=== PATIENT | male | born 1945 | race Caucasian/White ===

== ENCOUNTER → 2020-01-13 11:48 | Outpatient (CLI) | payer OTHER, SELFPAY ==
[2020-01-14 22:57] LABS: COVID19 Sendout Not Detected (Not Detect)
== END ==
PROVIDERS: Visit Provider Physician Assistant
DX: Z01.812 Encounter for preprocedural laboratory examination (principal)
CPT/HCPCS: 87635

== ENCOUNTER 2020-01-16 06:41 | Day surgery (SDC) | payer OTHER, SELFPAY ==
[2020-01-16] MEDS: PROPARACAINE 0.5% OPHTH SOL 2 DROPS EYE-OP (07:48)
[2020-01-16] MEDS: CATARACT EYE COMPOUND (10 DROPS/SYRINGE) 3 DROPS EYE-OP (07:51)
[2020-01-16 08:03] VITALS: BP 154/92; PULSE 64; RESP 20; TEMP 35.8; O2SAT 96; BMI 30.8
--- NOTE | 2020-01-16 08:33 | PM.PREOP ---
Pre-operative Note Interval Note History & Physical reviewed/Exam performed by Physician: Yes Changes to H&P: No
--- NOTE | 2020-01-16 08:33 | PM.OP.1 ---
Operative Date/Time/Diagnoses Pre-op diagnosis: Nuclear cataract right eye Procedure & Clinicians Procedure: Cataract Surgery Same procedure as scheduled: Yes Surgeon: Zay Rivera Anesthesia Type: MAC +/- and Sedation Operative Notes Procedure in detail: Patient brought to the operating suite. Tetracaine drops placed in the right eye. Patient was prepped and draped in sterile manner. Wire lid speculum was placed in the eye. Betadine drops were placed on the eye. This was irrigated. Lidocaine jelly was placed on the eye. A paracentesis port was created with a side-port blade. 0.1 mL 1% preservative free lidocaine was injected into the anterior chamber. The anterior chamber was deepened with viscoelastic. 2.6 mm keratome was used to create a temporal clear corneal incision. Cystotome and Utrata forceps were used to create continuous tear capsulorrhexis. Balanced salt solution was used to hydro dissect the nucleus. The phacoemulsification handpiece was inserted and the nucleus was removed using the stop and chop technique. The irrigation aspiration handpiece was inserted and the remaining cortex was removed. Anterior chamber was deepened with viscoelastic. An Quan ZCB00 intraocular lens with a power of 21.5 was injected into the capsular bag. Irrigation aspiration handpiece was inserted and the remaining viscoelastic was removed. Incision was hydrated with balanced salt solution and found to be leak free with pressure with Weck-Nikki sponges. 0.1 mL Vigamox injected anterior chamber. 0.3 mL Kenalog 10 mg was injected subconjunctivally. Lid speculum was removed. The patient left the operating room in excellent condition. Complications: none Post-operative Condition: stable Disposition: same day surgery
[2020-01-16] MEDS: CHONDROIDTIN/SOD HYALURONATE 1.05 ML SYRINGE INTRAOCULA (08:54)
[2020-01-16] MEDS: LIDOCAINE JELLY 2% 5 ML 1 APPLIC TOP (08:55)
[2020-01-16] MEDS: MOXIFLOXACIN INJ 5 MG/ML VIAL EYE-OP (08:55)
[2020-01-16] MEDS: TETRACAINE 0.5% OPHTH DROPS 4 ML 2 DROPS EYE-OP (08:56)
[2020-01-16] MEDS: BALANCED SALT IRRIG SOLN NO.2 500 ML, EPINEPHrine 1 MG IRR (08:56)
[2020-01-16] MEDS: PHENYLEPHRINE/LIDOCAINE VIAL (OR) 0.2 ML EYE-OP (08:56)
[2020-01-16] MEDS: TRIAMCINOLONE 50 MG/5 ML VIAL INJ (08:56)
[2020-01-16 09:20] VITALS: BP 163/87; PULSE 53; RESP 16; TEMP 36.4; O2SAT 94
== END 2020-01-16 09:30 | disposition home or self-care (01) ==
PROVIDERS: Referring Provider Ophthalmology; Visit Provider Ophthalmology
PROC: (CPT 66984; principal; 2020-01-16 08:45)
DX: H25.11 Age-related nuclear cataract, right eye (principal); E11.9 Type 2 diabetes mellitus without complications; I25.2 Old myocardial infarction; N40.0 Benign prostatic hyperplasia without lower urinary tract symptoms; J44.9 Chronic obstructive pulmonary disease, unspecified; K21.9 Gastro-esophageal reflux disease without esophagitis
CPT/HCPCS: 66984; J0171; J2250; J3010; J3301

== ENCOUNTER → 2020-01-27 15:11 | Outpatient (CLI) | payer OTHER, SELFPAY ==
[2020-01-29 20:38] LABS: COVID19 Sendout Not Detected (Not Detect)
== END ==
PROVIDERS: Visit Provider Physician Assistant
DX: Z11.59 Encounter for screening for other viral diseases (principal)
CPT/HCPCS: 87635

== ENCOUNTER 2020-01-30 07:51 | Day surgery (SDC) | payer OTHER, SELFPAY ==
[2020-01-30] MEDS: CATARACT EYE COMPOUND (10 DROPS/SYRINGE) 3 DROPS EYE-OP (09:24)
[2020-01-30] MEDS: PROPARACAINE 0.5% OPHTH SOL 2 DROPS EYE-OP (09:24)
[2020-01-30 09:25] VITALS: BP 128/76; PULSE 51; RESP 18; TEMP 36.3; O2SAT 96; BMI 29.0
--- NOTE | 2020-01-30 10:16 | P.OP_ITS ---
Operative Date/Time/Diagnoses Pre-op diagnosis: Nuclear Cataract Left eye Post-op diagnosis: same Procedure & Clinicians Same procedure as scheduled: Yes Surgeon: Zay Rivera Anesthesia Type: MAC +/- and Sedation Operative Notes Procedure in detail: Patient brought to the operating suite. Tetracaine drops placed in the left eye. Patient was prepped and draped in sterile manner. Wire lid speculum was placed in the eye. Betadine drops were placed on the eye. This was irrigated. Lidocaine jelly was placed on the eye. A paracentesis port was created with a side-port blade. 0.1 mL 1% preservative free lidocaine was injected into the anterior chamber. The anterior chamber was deepened with viscoelastic. 2.6 mm keratome was used to create a temporal clear corneal incision. Cystotome and Utrata forceps were used to create continuous tear capsulorrhexis. Balanced salt solution was used to hydro dissect the nucleus. The phacoemulsification handpiece was inserted and the nucleus was removed using the stop and chop technique. The irrigation aspiration handpiece was inserted and the remaining cortex was removed. Anterior chamber was deepened with viscoe lastic. An Quan ZCB00 intraocular lens with a power of 21.0 was injected into the capsular bag. Irrigation aspiration handpiece was inserted and the remaining viscoelastic was removed. Incision was hydrated with balanced salt solution and found to be leak free with pressure with Weck-Nikki sponges. 0.1 mL Vigamox injected anterior chamber. 0.3 mL Kenalog 10 mg was injected subconjunctivally. Lid speculum was removed. The patient left the operating room in excellent condition. Complications: none Post-operative Condition: stable Disposition: same day surgery
--- NOTE | 2020-01-30 10:16 | PM.PREOP ---
Pre-operative Note Interval Note History & Physical reviewed/Exam performed by Physician: Yes Changes to H&P: No
[2020-01-30] MEDS: LIDOCAINE JELLY 2% 5 ML 1 APPLIC TOP (10:37)
[2020-01-30] MEDS: MOXIFLOXACIN INJ 5 MG/ML VIAL EYE-OP (10:37)
[2020-01-30] MEDS: CHONDROIDTIN/SOD HYALURONATE 1.05 ML SYRINGE INTRAOCULA (10:37)
[2020-01-30] MEDS: TETRACAINE 0.5% OPHTH DROPS 4 ML 2 DROPS EYE-OP (10:37)
[2020-01-30] MEDS: BALANCED SALT IRRIG SOLN NO.2 500 ML, EPINEPHrine 1 MG IRR (10:38)
[2020-01-30] MEDS: TRIAMCINOLONE 50 MG/5 ML VIAL INJ (10:38)
[2020-01-30 10:49] VITALS: BP 106/67; PULSE 54; RESP 18; TEMP 36; O2SAT 96
== END 2020-01-30 10:57 | disposition home or self-care (01) ==
PROVIDERS: Referring Provider Ophthalmology; Visit Provider Ophthalmology
PROC: (CPT 66984; principal; 2020-01-30 10:15)
DX: H25.12 Age-related nuclear cataract, left eye (principal); E66.9 Obesity, unspecified; I10 Essential (primary) hypertension; I25.2 Old myocardial infarction; I51.9 Heart disease, unspecified
CPT/HCPCS: 66984; J0171; J2250; J3301